=== PATIENT | male | born 1945 | race Caucasian/White ===

== ENCOUNTER → 2017-12-14 | Day surgery (SDC) | payer OTHER, MEDICARE ==
[~2017-12-14] VITALS: Ht 167.6 cm; Wt 69.9 kg
[~2017-12-14] MED LIST: CRESTOR20 M2 PO; DOXAZOSIN MESYLA2 M1 PO; FLOMAX0.4 M1 PO; LISINOPRIL40 M1 PO; METOPROLOL SUCC25 M1 PO; OMEPRAZOLE20 M2 PO; TRAMADOL HCL50 M1 PO; ZOCOR40 M1 PO
--- NOTE | 2017-12-14 08:16 | History & Physical Pre-Op ---
General Information and HPI History of Present Illness: Rashid is a 72-year-old male with a long-standing and worsening complaint of a painful and enlarging soft tissue mass left foot. The patient has undergone an extended course of conservative care, loading shoe gear and activity modification, rest, immobilization and courses of NSAIDs. None of this is yielded him any significant relief. The patient presents today for preoperative surgical consultation. The patient was referred to our office from Jerrell Livingston DPM. Allergies/Medications Allergies: Coded Allergies: No Known Allergies (12/10/17) Home Med list Lisinopril 40 MG TABLET 1 TAB PO DAILY BP (Reported) Metoprolol Succinate 25 MG TAB 0.5 TAB PO QPM HEART (Reported) Simvastatin (Zocor*) 40 MG TABLET 1 TAB PO QPM CHOLESTEROL (Reported) Tamsulosin HCl (Flomax) 0.4 MG CAP.ER.24H 1 CAP PO DAILY PROSTATE (Reported) Past History Medical History Neurological: NONE EENT: NONE Cardiovascular: hypertension, HIGH CHOLESTEROL CARDIAC STENT Respiratory: NONE Gastrointestinal: GERD, ESOPHAGEAL SPASMS HIATAL HERNIA Hepatic: NONE Renal: NONE Musculoskeletal: NONE Psychiatric: NONE Endocrine: NONE Blood Disorders: NONE Cancer(s): NONE Surgical History Pertinent Surgical History: non-contributory Review of Systems Review of Systems: Unremarkable except for that noted in shoe present illness Exam & Diagnostic Data Physical Exam: Lungs clear bilaterally. Heart sounds rate and rhythm regular. Lower extremity physical exam demonstrates intact pedal pulses bilaterally. Pulses dorsalis pedis and posterior tibial arteries are palpable bilaterally. Patient without any sensory motor deficits. Deep tendon reflexes grossly intact. Patient noted to have some pain with palpation to the lesion. The lesion is nonpulsatile, freely mobile and firm to touch. Assessment/Plan Assessment/Plan: Painful and enlarging soft tissue mass left foot. A lengthy discussion reviewing both surgical and conservative options was held the patient at bedside and the patient elects to go forward surgery despite the risks. As Ranked By This Provider Problem List: 1. Neoplasm of unspecified behavior of bone, soft tissue, and skin Attending MD Review Statement Attending Statement Attending MD Statement: examined this patient
--- NOTE | 2017-12-14 09:25 | Operative Report ---
Operative/Inv Procedure Report Surgery Date: 12/14/17 Name of Procedure: 1 excision of soft tissue mass left foot 2 closure of open surgical wound with local random advancement flap 3 intraoperative administration of ankle block anesthesia Pre-Operative Diagnosis: 1 painful, enlarging soft tissue mass left foot Post-Operative Diagnosis: The same Estimated Blood Loss: scant Surgeon/Technical Specialist Cytology: Debi FREEMAN,Mayank Livingston DPM Anesthesia: moderate sedation, block Operative/Procedure Note Note: After obtaining informed consent the patient was brought to the operating room and placed on the operating table in the supine position. The patient was then securely fastened to the operating table utilizing safety belt. After administration of IV sedation, 10 mL of 0.5% Marcaine plain was infiltrated about the patient's left ankle. Well-padded ankle tourniquet was placed about the patient's left lower extremity. 2 g of Ancef were delivered intravenously times one dose. The left foot was scrubbed, prepped and draped in usual aseptic manner. The left lower extremity was elevated to examine to limb, at which point the ankle tourniquet inflated 250 mmHg. Attention directed to the medial aspect of the left foot, where a 5 cm linear incision was made at the junction of the dorsal plantar skin overlying the first metatarsal head. The dissection was then carried down to the subtenons tissues, where a mass was identified. A plane was developed between the mass and the superior normal tissues. The dissection and continued from medial to lateral. A similar plain was developed laterally and the lesion was distracted and passed from the operative field. A sent a specimen for pathologic inspection. The wound was inspected for any additional lesion and none was identified. The wound was irrigated with copious amounts normal sterile saline. Inferiorly, the moring ligaments released and the adjacent tissues were advanced from lateral to medial and reapproximated on its deep side with 3-0 Vicryl. The deep tissues reapproximated 4-0 Vicryl and the skin edges reprepped with 4-0 nylon. Incision was dressed with Xeroform, 4 x 4's, Kerlix and an LUC wrap. The patient was noted tolerate both procedure and anesthesia well and transported from the operating room to recovery with vital signs stable best assess intact to the plantar flap. Please cc a copy of this dictation to Jerrell Livingston DPM
== END ==
LOC: STS 00:45
DX: C79.89 Secondary malignant neoplasm of other specified sites (principal); I25.10 Atherosclerotic heart disease of native coronary artery without angina pectoris; Z95.5 Presence of coronary angioplasty implant and graft; I10 Essential (primary) hypertension; D33.2 Benign neoplasm of brain, unspecified; K21.9 Gastro-esophageal reflux disease without esophagitis
CPT/HCPCS: J0690; J1100; J2001; J2250